=== PATIENT | female | born 1950 | race Two or more races ===

== ENCOUNTER 2019-03-16 08:10 | Emergency (ER) | payer MEDICARE ==
[~2019-03-16] VITALS: Ht 165.1 cm; Wt 53.0 kg
[2019-03-16 08:13] VITALS: BP 129/72
== END 2019-03-16 10:25 | disposition home or self-care (01) ==
LOC: ER 08:10
DX: H60.93 Unspecified otitis externa, bilateral (principal); F17.200 Nicotine dependence, unspecified, uncomplicated; Z88.0 Allergy status to penicillin
CPT/HCPCS: 99283

== ENCOUNTER 2025-03-05 21:02 | Emergency (ER) | payer BC, MEDICAID ==
[~2025-03-05] VITALS: Ht 167.6 cm; Wt 57.0 kg
[2025-03-05 21:04] VITALS: O2SAT 100
[2025-03-05] MEDS: HYDROCODONE/ACETAMINOPHEN 5/325MG TABLET PO ONE (22:03)
[2025-03-05] MEDS: ACETAMINOPHEN 500MG TABLET PO STA (22:03)
[2025-03-06] MEDS: KETOROLAC 30MG/ML VIAL IM ONE ×2 (01:19→04:58)
[2025-03-06] MEDS ORDERED: ACET-2708 MT (03:23)
[2025-03-06 04:42] VITALS: BP 116/79; PULSE 98; RESP 22; TEMP 37.1; O2SAT 100
== END 2025-03-06 06:00 | disposition home or self-care (01) ==
LOC: ER 21:02
DX: M25.561 Pain in right knee (principal); M25.521 Pain in right elbow; M79.641 Pain in right hand; W19.XXXA Unspecified fall, initial encounter; Y93.89 Activity, other specified; Y92.89 Other specified places as the place of occurrence of the external cause; Y99.8 Other external cause status
CPT/HCPCS: 99285; 73080; 73130; 73562; 70450; 72125; 96372; J1885